=== PATIENT | male | born 1970 | race Hispanic/Latino ===

== ENCOUNTER → 2018-09-24 | Outpatient (CLI) | payer OTHER ==
[~2018-09-24] VITALS: Ht 182.9 cm; Wt 79.0 kg
[2018-09-24 16:11] LABS: BASOPHILS % (AUTO) 0.4 % (0.0-5.0); EOSINOPHILS % (AUTO) 2.3 % (0.0-8.0); HEMATOCRIT 40.2 % (42-54); LYMPHOCYTES % (AUTO) 36.6 % (21.0-51.0); MEAN CORPUSCULAR HEMOGLOBIN 29.7 pg (27.0-33.0); MEAN CORPUSCULAR HGB CONC 33.8 g/dL (32.0-36.0); MEAN CORPUSCULAR VOLUME 87.9 fL (79-99); MONOCYTES % (AUTO) 9.5 % (3.0-13.0); NEUTROPHILS % (AUTO) 51.2 % (40.0-77.0); NUCLEATED RED BLOOD CELLS 0.1 % (0.0-0.19); PLATELET COUNT (AUTO) 181 K/uL (130-400); RED BLOOD CELL COUNT(AUTO) 4.58 MIL/uL (4.50-6.20); RED CELL DISTRIBUTION WIDTH 13.5 % (11.0-15.5); WHITE BLOOD COUNT (AUTO) 3.8 K/uL (4.8-10.8)
[2018-09-24 16:23] LABS: CREATININE 0.8 mg/dL (0.5-1.5); POTASSIUM 4.7 mmol/L (3.5-5.1)
[2018-09-24 17:00] VITALS: BP 141/91
--- NOTE | 2018-09-24 17:10 | NUR ---
BLOOD SUGAR [address] LE PATIENT HAS NOT TAKEN HIS JANUMET, HIS VICTOZA IS DUE THIS EVENING, BLOOD SUGAR IS 474... HAVE PATIENT SEE HIS PRIMARY DOCTOR TO CONTROL HIS BLOOD SUGAR, CALL HIS OFFICE TO RESCHEDULE PER DR LE... Addendum: 09/24/18 at 1719 by LIAN RAMIREZ RN RN HAVE PATIENT CALL DR LE OFFICE TO RESCHEDULE SURGERY AFTER BLOOD SUGAR IS CONTROLLED
--- NOTE | 2018-09-24 17:15 | NUR ---
INFORMED PATIENT TO SEE YOUR PRIMARY DOCTOR FOR CONTROL OF ELEVATED BLOOD SUGAR, CALL DR LE OFFICE TO RESCHEDULE SURGERY AFTER BLOOD SUGAR IS CONTROLLED...INSTRUCTED PATIENT AND YOU CAN GO TO EMERGENCY ROOM IF YOU DEVELOP SYMPTOMS INCREASED HUNGER, INCREASED THIRST, BLURRED VISION, DIFICULTY CONCENTRATING, WEAKNESS...PATIENT STATES HE DOES NOT HAVE THESE SYMPTOMS AND WILL FOLLOW UP WITH PRIMARY DOCTOR... AND PATIENT VERBALIZED UNDERSTANDING
== END ==
LOC: DAH 10:00 → EDSTATUS 15:00
PROVIDERS: ATTEND Orthopaedic Surgery
DX: Z01.818 Encounter for other preprocedural examination (principal); M75.102 Unspecified rotator cuff tear or rupture of left shoulder, not specified as traumatic
CPT/HCPCS: 36415; 80048; 85025

== ENCOUNTER 2018-12-25 09:40 | Day surgery (SDC) | payer OTHER ==
[2018-12-24 14:50] VITALS: BP 119/86
[2018-12-24 15:09] LABS: BASOPHILS % (AUTO) 0.5 % (0.0-5.0); HEMATOCRIT 44.9 % (42-54); LYMPHOCYTES % (AUTO) 31.3 % (21.0-51.0); MEAN CORPUSCULAR HEMOGLOBIN 29.5 pg (27.0-33.0); MEAN CORPUSCULAR HGB CONC 33.4 g/dL (32.0-36.0); MEAN CORPUSCULAR VOLUME 88.3 fL (79-99); MONOCYTES % (AUTO) 7.6 % (3.0-13.0); NEUTROPHILS % (AUTO) 59.6 % (40.0-77.0); NUCLEATED RED BLOOD CELLS 0.1 % (0.0-0.19); PLATELET COUNT (AUTO) 265 K/uL (130-400); RED BLOOD CELL COUNT(AUTO) 5.08 MIL/uL (4.50-6.20); RED CELL DISTRIBUTION WIDTH 13.2 % (11.0-15.5); WHITE BLOOD COUNT (AUTO) 6.2 K/uL (4.8-10.8)
[2018-12-24 15:20] LABS: CREATININE 0.8 mg/dL (0.5-1.5); POTASSIUM 5.1 mmol/L (3.5-5.1)
[~2018-12-25] VITALS: Ht 180.3 cm; Wt 77.6 kg
[2018-12-25] VITALS (12 sets, daily range): BP systolic 101–110; BP diastolic 59–71
[2018-12-25] MEDS: CEFAZOLIN SODIUM 1 GM VIAL IVP SCH ×2 (06:00→15:55)
[~2018-12-25 09:40] MED LIST: ASPI-555 PO; CANA300T PO; CHOLESTERAL MED PO; LOSA25TA41 PO; SITA1TAB6 PO; UNKNOWN BP MED PO; UNKNOWN INSULIN SQ
[2018-12-25] MEDS ORDERED: SODIUM CHLORIDE 0.9% 1000ML 1,000 ML IV ONE (12:11)
[2018-12-25] MEDS ORDERED: LOSA1TAB42 PO (12:47)
[2018-12-25] MEDS ORDERED: EZET1TAB21 PO (12:49)
[2018-12-25] MEDS ORDERED: LIRA0.6P2 SQ (12:52)
[2018-12-25] MEDS ORDERED: NEBI5TAB8 PO (12:52)
[2018-12-25] MEDS ORDERED: ICOS1CAP PO (12:54)
[2018-12-25] MEDS ORDERED: PROPOFOL 10 MG/ML 20ML VIAL IV ONE (14:51)
[2018-12-25] MEDS ORDERED: ROCURONIUM 10MG/1ML SYR 10 MG/ML ML ONE ×2 (14:51→15:42)
[2018-12-25] MEDS ORDERED: MIDAZOLAM HCL 1 MG/ML 2ML VIAL ONE (14:51)
[2018-12-25] MEDS ORDERED: LIDOCAINE PF 2% 5ML ABBOJECT ONE ×2 (14:51→14:54)
[2018-12-25] MEDS ORDERED: FENTANYL CITRATE PF 50 MCG/1 ML 2ML VIAL ONE (14:51)
[2018-12-25] MEDS ORDERED: EPINEPHRINE 1 MG/ML 30ML VIAL IJ ONE (14:53)
[2018-12-25] MEDS ORDERED: ROPIVACAINE 0.5% 5MG/ML 30ML IJ ONE (14:54)
[2018-12-25] MEDS ORDERED: ONDANSETRON HCL 4 MG/2 ML VIAL ONE ×2 (15:53→17:07)
[2018-12-25] MEDS ORDERED: NEOSTIGMINE 5MG/5ML SYR IV ONE (15:57)
[2018-12-25] MEDS ORDERED: GLYCOPYRROLATE 1 MG/5 ML SYRINGE ONE (15:57)
[2018-12-25] MEDS ORDERED: PHENYLEPHRINE HCL 10 MG/ML 1ML VIAL IV ONE (16:59)
[2018-12-25] MEDS ORDERED: CEPH500B PO (19:21)
[2018-12-25] MEDS ORDERED: IBUP-2077 PO (19:21)
[2018-12-25] MEDS ORDERED: HYDR-4457 PO (19:21)
--- NOTE | 2018-12-25 20:28 | NUR ---
PT AAOX, NO DISTRESS, C/O PAIN TO LT SHOULDER S/P SURGERY, ICE PACKS APILLIED TO SHOULDER APON ARRIVAL TO ROOM. PT VITALS STABLE, ABLE TO TOLERATED FLUIDS, INSTRUCTIONS GIVEN TO PT AND 3 PRESCRIPTIONS. PT DRESSED AT BEDSIDE AND EDUCATION ON SLING WAS EXPLAINED TO PT AND , BOTH VERBALIZED UNDERSTANDING. PT PLACED IN WHEELCHAIR, DRIVEN HOME BY .
== END 2018-12-25 20:31 ==
LOC: DAH 09:40
PROVIDERS: ATTEND Orthopaedic Surgery
DX: S43.402A Unspecified sprain of left shoulder joint, initial encounter (principal); S46.212A Strain of muscle, fascia and tendon of other parts of biceps, left arm, initial encounter; M25.812 Other specified joint disorders, left shoulder; M75.52 Bursitis of left shoulder; M75.112 Incomplete rotator cuff tear or rupture of left shoulder, not specified as traumatic; I10 Essential (primary) hypertension; E11.9 Type 2 diabetes mellitus without complications; Z79.899 Other long term (current) drug therapy; Z98.890 Other specified postprocedural states; W10.9XXA Fall (on) (from) unspecified stairs and steps, initial encounter; Y93.89 Activity, other specified; Y99.0 Civilian activity done for income or pay
CPT/HCPCS: 23430; 29806; 29822; 29824; 29826; 36415; 80048; 82948 ×3; 85025; A4565; A4600; A4649 ×6; A4930 ×2; A6204; C1713 ×2; G0168; J0171; J0690; J2001 ×2; J2250; J2370; J2405 ×2; J2704; J2710; J2795; J3010; J3490; J7030 ×2; J7120

== ENCOUNTER 2019-08-23 10:46 | Day surgery (SDC) | payer OTHER ==
[2019-08-20 11:41] LABS: CREATININE 0.7 mg/dL (0.5-1.5); POTASSIUM 4.8 mmol/L (3.5-5.1)
[2019-08-20 11:42] LABS: BASOPHILS % (AUTO) 0.4 % (0.0-5.0); EOSINOPHILS % (AUTO) 1.3 % (0.0-8.0); HEMATOCRIT 46.5 % (42-54); LYMPHOCYTES % (AUTO) 42.7 % (21.0-51.0); MEAN CORPUSCULAR HEMOGLOBIN 28.5 pg (27.0-33.0); MEAN CORPUSCULAR HGB CONC 32.5 g/dL (32.0-36.0); MEAN CORPUSCULAR VOLUME 87.9 fL (79-99); MONOCYTES % (AUTO) 6.5 % (3.0-13.0); NEUTROPHILS % (AUTO) 48.9 % (40.0-77.0); PLATELET COUNT (AUTO) 209 K/uL (130-400); RED BLOOD CELL COUNT(AUTO) 5.29 MIL/uL (4.50-6.20); RED CELL DISTRIBUTION WIDTH 12.1 % (11.0-15.5); WHITE BLOOD COUNT (AUTO) 4.6 K/uL (4.8-10.8)
[2019-08-20 12:39] VITALS: BP 142/85
[~2019-08-23] VITALS: Ht 180.3 cm; Wt 73.9 kg
[2019-08-23] VITALS (15 sets, daily range): BP systolic 106–132; BP diastolic 59–87
[2019-08-23] MEDS: CEFAZOLIN SODIUM 1 GM VIAL IVP SCH ×2 (06:00→16:45)
[~2019-08-23 10:46] MED LIST changes: -CHOLESTERAL MED PO; -LOSA25TA41 PO; +LOSARTAN; -UNKNOWN BP MED PO; -UNKNOWN INSULIN SQ
[2019-08-23] MEDS ORDERED: SODIUM CHLORIDE 0.9% 1000ML 1,000 ML IV ONE (12:38)
[2019-08-23] MEDS ORDERED: EPINEPHRINE 1 MG/ML 30ML VIAL IJ ONE (14:45)
[2019-08-23] MEDS ORDERED: LIDOCAINE PF 2% 5ML ABBOJECT ONE (16:07)
[2019-08-23] MEDS ORDERED: DEXAMETHASONE SOD PHOSPHATE 10MG/ML 1ML VIAL ONE (16:07)
[2019-08-23] MEDS ORDERED: ONDANSETRON HCL 4 MG/2 ML VIAL ONE ×2 (16:07→20:43)
[2019-08-23] MEDS ORDERED: FENTANYL CITRATE PF 50 MCG/1 ML 2ML VIAL ONE ×2 (16:08→19:47)
[2019-08-23] MEDS ORDERED: PROPOFOL 10 MG/ML 20ML VIAL IV ONE (16:08)
[2019-08-23] MEDS ORDERED: ROCURONIUM 10MG/1ML SYR 10 MG/ML ML ONE ×2 (16:08→17:45)
[2019-08-23] MEDS ORDERED: MIDAZOLAM HCL 1 MG/ML 2ML VIAL ONE (16:08)
[2019-08-23] MEDS ORDERED: ROPIVACAINE 0.5% 5MG/ML 30ML IJ ONE (16:17)
[2019-08-23] MEDS ORDERED: EPHEDRINE SULFATE 50 MG/ML AMPULE ONE (16:24)
[2019-08-23] MEDS ORDERED: GLYCOPYRROLATE 1 MG/5 ML SYRINGE ONE (19:01)
[2019-08-23] MEDS ORDERED: NEOSTIGMINE 5MG/5ML SYR IV ONE (19:01)
[2019-08-23] MEDS ORDERED: CEPH500B PO (19:05)
[2019-08-23] MEDS ORDERED: HYDR-4457 PO (19:05)
[2019-08-23] MEDS ORDERED: NAPR-1192 PO (19:05)
[2019-08-23] MEDS ORDERED: MORPHINE SULFATE 4 MG/1ML SYG ONE (19:55)
[2019-08-23] MEDS ORDERED: KETOROLAC TROMETHAMINE 15MG/ML ONE (20:03)
--- NOTE | 2019-08-23 20:17 | NUR ---
RECEIVE PT RECEIVED AWAKE ALERT ORIENTED X3. DRESSINGS X3 TO LEFT SHOULDER DRY AND INTACT, NO OOZING NOTED, ICE PACK APPLIED. SLING TO LEFT AERM IN PLACE, SENSATION INTACT, ABLE TO MOVE HANDS/FINGERS.
[2019-08-23] MEDS ORDERED: METOCLOPRAMIDE 10 MG/2 ML VIAL ONE (20:54)
--- NOTE | 2019-08-23 20:58 | NUR ---
NAUSEA PT COMPLAINED OF NAUSEA AT 2044, NO VOMITING, ZOFRAN 4MG IVP GIVEN BY ZAKIA TAFOYASUGAR PLANTATION MANAGER. UPON REPOSITIONING PT TO SIT UP, PT STATES HE FELT NAUSEOUS AGAIN, NO VOMITING NOTED. REGLAN 10 MG IVP GIVEN BY LOTTIE,MANAGER STRATEGY & ACCOUNT. PT VERBALIZED RELIEF FEW MINS POST NAUSEA MEDS.
--- NOTE | 2019-08-23 21:15 | NUR ---
DISCHARGE PT DISCHARGED VIA WHEELCHAIR WITH . PT VERBALIZED PAIN RELIEF, NAUSEA VERY MINIMAL, ONLY UPON MOVEMENT. PT STATES HE IS COMFORTABLE AND READY TO GO HOME. DRESSINGS TO LEFT SHOULDER REMAINS DRY AND INTACT, NO OOZING NOTED, SLING IN PLACE. DISCHARGE INSTRUCTIONS GIVEN TO , VERBALIZED UNDERSTANDING.
== END 2019-08-23 21:15 | disposition home or self-care (01) ==
LOC: DAH 10:46
PROVIDERS: ATTEND Orthopaedic Surgery
DX: M75.52 Bursitis of left shoulder (principal); M75.02 Adhesive capsulitis of left shoulder; M75.42 Impingement syndrome of left shoulder; E11.9 Type 2 diabetes mellitus without complications; I10 Essential (primary) hypertension; Z79.899 Other long term (current) drug therapy; Z79.84 Long term (current) use of oral hypoglycemic drugs; Z79.82 Long term (current) use of aspirin; Z98.890 Other specified postprocedural states; Z90.49 Acquired absence of other specified parts of digestive tract; Z83.3 Family history of diabetes mellitus; Z82.49 Family history of ischemic heart disease and other diseases of the circulatory system
CPT/HCPCS: 23700; 29822; 64415; 36415; 80048; 82948 ×2; 85025; A4215; A4221; A4222; A4223; A4649 ×3; A4663; A5120; A6207; G0168; J0171; J0690; J1100; J1885; J2001; J2250; J2270; J2405 ×2; J2704; J2710; J2765; J2795; J3010 ×2; J3490 ×2; J7030 ×2